=== PATIENT | male | born 1945 | race Caucasian/White ===

== ENCOUNTER 2020-10-09 13:13 | Emergency (ER) | payer OTHER, BC ==
[2020-10-09 13:40] VITALS: BP 137/83; PULSE 57; TEMP 97.9; BMI 31.0
[2020-10-09] MEDS ORDERED: METHOCARBAMOL 500 MG TABLET PO ONE (14:12)
[2020-10-09] MEDS ORDERED: ACETAMINOPHEN 325 MG TABLET (FP) PO ONE (14:12)
[2020-10-09] MEDS ORDERED: ACETAMINOPHEN 325 MG TABLET (FP) ONE (14:16)
[2020-10-09] MEDS ORDERED: METHOCARBAMOL 500 MG TABLET ONE (14:16)
[2020-10-09] MEDS ORDERED: IBUPROFEN 400 MG TABLET (FP) PO ONE (14:26)
== END 2020-10-09 14:42 | disposition home or self-care (01) ==
LOC: JERFT 13:13
DX: S76.912A Strain of unspecified muscles, fascia and tendons at thigh level, left thigh, initial encounter (principal)
CPT/HCPCS: 73552-TC-LT-FY; 99283-25

== ENCOUNTER 2023-03-16 07:24 | Day surgery (SDC) | payer OTHER, BC ==
[2023-03-14 13:54] VITALS: BMI 29.7
[2023-03-16] MEDS ORDERED: LIDOCAINE HCL/PF 2% SDV 5ML VIAL ONE (07:30)
[2023-03-16] MEDS ORDERED: PROPOFOL 160 ML ONE (07:30)
[2023-03-16 17:22] VITALS: TEMP 97.5
[2023-03-16 17:25] VITALS: BP 120/60; PULSE 51; RESP 16
== END 2023-03-16 09:45 | disposition home or self-care (01) ==
LOC: FASU-ENDO 07:24
PROVIDERS: ATTEND Internal Medicine Gastroenterology
PROC: 0DBL8ZX Excision of Transverse Colon, Via Natural or Artificial Opening Endoscopic, Diagnostic (ICD-10-PCS; 2023-03-16)
PROC: 0DBN8ZX Excision of Sigmoid Colon, Via Natural or Artificial Opening Endoscopic, Diagnostic (ICD-10-PCS; 2023-03-16)
PROC: 0DBH8ZX Excision of Cecum, Via Natural or Artificial Opening Endoscopic, Diagnostic (ICD-10-PCS; 2023-03-16)
PROC: 0DBK8ZX Excision of Ascending Colon, Via Natural or Artificial Opening Endoscopic, Diagnostic (ICD-10-PCS; principal; 2023-03-16 08:29)
DX: Z12.11 Encounter for screening for malignant neoplasm of colon (principal); D12.0 Benign neoplasm of cecum; D12.3 Benign neoplasm of transverse colon; D17.5 Benign lipomatous neoplasm of intra-abdominal organs; K57.30 Diverticulosis of large intestine without perforation or abscess without bleeding; Z86.010 Personal history of colon polyps
CPT/HCPCS: 88305-TC